=== PATIENT | male | born 1975 | race Caucasian/White ===

== ENCOUNTER → 2017-05-24 | Outpatient (CLI) | payer BC ==
[~2017-05-24] MED LIST: CALC500C3 PO
[2017-05-24 12:16] LABS: BASO % 0.4 %; BASO ABS # 0.03 K/uL (0-0.2); COMPLETE YES; EOS % 1.8 %; HEMATOCRIT 44.6 % (42-52); IG% 0.1 %; LYMPH % 32.1 %; LYMPH ABS # 2.34 K/uL (1.2-3.4); MEAN CELL VOLUME 88.5 fL (80-100); MEAN PLATELET VOLUME 10.8 fL (7.4-10.4); MONO % 11.1 %; NEUT % 54.5 %; PLATELET COUNT 268 K/uL (130-400); RED BLOOD COUNT 5.04 M/uL (4.7-6.1); WHITE BLOOD COUNT 7.28 K/uL (4.8-10.8)
[2017-05-24 12:42] LABS: BLOOD UREA NITROGEN 15 mg/dl (7-18); BUN/CREATININE RATIO 11.8 (10-20); CALCIUM 9.4 mg/dl (8.5-10.1); CARBON DIOXIDE 30 mmol/L (21-32); CHLORIDE 107 mmol/L (98-107); GLUCOSE 97 mg/dl (70-99); POTASSIUM 3.9 mmol/L (3.5-5.1); SODIUM 143 mmol/L (136-145)
== END | disposition home or self-care (01) ==
LOC: C.LAB 11:48
PROVIDERS: ATTEND Family Medicine Adolescent Medicine
DX: R68.2 Dry mouth, unspecified (principal)